=== PATIENT | female | born 1950 | race Caucasian/White ===

== ENCOUNTER 2018-01-24 22:13 | Emergency (ER) | payer MEDICARE ==
[~2018-01-24] VITALS: Ht 157.5 cm; Wt 64.5 kg
[2018-01-24 22:30] VITALS: BP 159/73; PULSE 93; RESP 18; TEMP 98; O2SAT 97
--- NOTE | 2018-01-24 23:16 | RADRPT ---
EXAM DATE/TIME: 01/24/2018 22:53 [facility] COMPARISON: No previous studies available for comparison. INDICATIONS : Trauma. Fall. RADIATION DOSE: 54.93 CTDIvol (mGy) MEDICAL HISTORY : None SURGICAL HISTORY : None. ENCOUNTER: Initial ACUITY: 1 day PAIN SCALE: 5/10 LOCATION: frontal TECHNIQUE: Multiple contiguous axial images were obtained of the head. Using automated exposure control and adj ustment of the mA and/or kV according to patient size, radiation dose was kept as low as reasonably a chievable to obtain optimal diagnostic quality images. DICOM format image data is available electro nically for review and comparison. FINDINGS: CEREBRUM: The ventricles are normal for age. No evidence of midline shift, mass lesion, hemorrhage or acute in farction. No extra-axial fluid collections are seen. POSTERIOR FOSSA: The cerebellum and brainstem are intact. The 4th ventricle is midline. The cerebellopontine angle i s unremarkable. EXTRACRANIAL: The visualized portion of the orbits is intact. SKULL: The calvaria is intact. No evidence of skull fracture. CONCLUSION: 1. No acute intracranial abnormalities. Left periorbital soft tissue swelling. nE Del Rio MD on January 24, 2018 at 23:11 Board Certified Radiologist. This report was verified electronically.
--- NOTE | 2018-01-24 23:19 | RADRPT ---
EXAM DATE/TIME: 01/24/2018 22:53 [facility] COMPARISON: No previous studies available for comparison. INDICATIONS : Trauma RADIATION DOSE: CTDIvol (mGy) MEDICAL HISTORY : None SURGICAL HISTORY : None ENCOUNTER: Initial ACUITY: One day PAIN SCORE: Unknown LOCATION: Left periorbital TECHNIQUE: Volumetric scanning of the facial bones was performed. Using automated exposure control and adjustme nt of the mA and/or kV according to patient size, radiation dose was kept as low as reasonably achiev able to obtain optimal diagnostic quality images. DICOM format image data is available electronicall y for review and comparison. FINDINGS: ORBITS: The orbital and infraorbital osseous structures are intact. The retroconal structures have a normal configuration. No radiopaque foreign bodies are seen. NASAL BONE: The nasal bone and maxillary spine are intact ZYGOMATIC ARCHES: Symmetric without evidence of fracture. SINUSES: The maxillary, ethmoid and frontal sinuses are intact. No air-fluid levels seen. NASAL CAVITY: The nasal septum is intact and midline. The lacrimal ducts are intact. SOFT TISSUES: No radiopaque foreign bodies seen. There is left-sided periorbital and frontal scalp swelling. INTRACRANIAL: No intracranial air seen. CRIBIFORM PLATE: Grossly intact. CONCLUSION: 1. Left-sided periorbital and scalp swelling. No acute fracture identified. En Del Rio MD on January 24, 2018 at 23:15 Board Certified Radiologist. This report was verified electronically.
[2018-01-24] MEDS ORDERED: SODIUM CHLOR 0.9% 1000 ML INJ 1,000 ML IV ONE (23:34)
[2018-01-24] MEDS ORDERED: ATEN25TA PO (23:36)
[2018-01-24] MEDS ORDERED: LIPI10TA PO (23:36)
[2018-01-24] MEDS ORDERED: SODIUM CHLORIDE 0.9% FLUSH 10 ML FLUSH IVF PRN (23:45)
[2018-01-24] MEDS ORDERED: ONDANSETRON HCL 4 MG/2 ML VIAL IVP ONE (23:45)
[2018-01-24] MEDS ORDERED: ACETAMINOPHEN/HYDROcodone 325 MG/5 MG TAB PO ONE (23:45)
[2018-01-25 00:02] LABS: AUTOMATED NEUTROPHIL # 10.4 TH/MM3 (1.8-7.7); BASOPHIL % 0.4 % (0.0-2.0); EOSINOPHIL % 0.4 % (0.0-4.0); HEMATOCRIT 42.7 % (35.0-46.0); HEMOGLOBIN 14.4 GM/DL (11.6-15.3); LYMPH % 10.1 % (9.0-44.0); LYMPHOCYTE # 1.3 TH/MM3 (1.0-4.8); MEAN CELL VOLUME 91.3 FL (80.0-100.0); MEAN CORPUSCULAR HEMOGLOBIN 30.9 PG (27.0-34.0); MEAN CORPUSCULAR HGB CONC 33.8 % (32.0-36.0); MEAN PLATELET VOLUME 8.4 FL (7.0-11.0); MONOCYTE # 0.7 TH/MM3 (0-0.9); NEUT % 83.1 % (16.0-70.0); PLATELET COUNT 190 TH/MM3 (150-450); RED BLOOD COUNT 4.68 MIL/MM3 (4.00-5.30); WHITE BLOOD COUNT 12.4 TH/MM3 (4.0-11.0)
[2018-01-25 00:10] VITALS: RESP 16; O2SAT 99
[2018-01-25 00:13] LABS: CHLORIDE 111 MEQ/L (98-107); SODIUM (NA) 142 MEQ/L (136-145)
[2018-01-25 00:17] LABS: BILIRUBIN, URINE NEG (NEG); BLOOD, URINE MOD (NEG); GLUCOSE,URINE NEG (NEG); KETONE, URINE 15 mg/dL (NEG); NITRITE,URINE POS (NEG); PH, URINE 5.5 (5.0-8.5); URINE COLOR YELLOW (YELLW/STRAW); URINE LEUKOCYTE ESTERASE SMALL (NEG)
[2018-01-25 00:17] LABS: ALBUMIN 3.9 GM/DL (3.4-5.0); BICARBONATE 25.5 MEQ/L (21.0-32.0); BLOOD UREA NITROGEN 18 MG/DL (7-18); GLUCOSE,RANDOM 112 MG/DL (74-106); MAGNESIUM 2.1 MG/DL (1.5-2.5)
[2018-01-25 00:20] LABS: ALT (GPT) 33 U/L (10-53); AST (GOT) 22 U/L (15-37); CREATININE 0.82 MG/DL (0.50-1.00); GLOMERULAR FILTRATION RATE 70 ML/MIN (>89)
[2018-01-25 00:22] LABS: HYALINE CAST, URINE 0-2 /lpf (RARE); MUCUS URINE FEW /lpf (OCC); WHITE BLOOD CELL CLUMPS OCC
[2018-01-25 00:22] LABS: TOTAL BILIRUBIN ADULT 0.2 MG/DL (0.2-1.0); TOTAL PROTEIN 7.5 GM/DL (6.4-8.2)
[2018-01-25 00:23] LABS: ALKALINE PHOSPHATASE 127 U/L (45-117)
[2018-01-25 00:23] LABS: BACTERIA, URINE MANY /hpf; RBC, URINE 0-3 /hpf (0-3); SQUAMOUS EPITHELIAL CELL URINE 0-5 /hpf (0-5)
[2018-01-25] MEDS ORDERED: cefTRIAXone INJ 1,000 MG in SODIUM CHLORIDE 0.9% INJ 100 ML IV ONE (00:30)
[2018-01-25] MEDS ORDERED: CEPH-460 PO (00:35)
[2018-01-25] MEDS ORDERED: PERI0.126 SWISH-SPIT (00:35)
--- NOTE | 2018-01-25 00:40 | PD ---
HPI Chief Complaint: Fall Time Seen by Provider: 22:31 Travel History International Travel<30 days: No Contact w/Intl Traveler<30days: No Traveled to known affect area: No History of Present Illness HPI The patient 67 years old and arrives to the ER by private vehicle. She had gone out to dinner with friends and had a couple drinks of alcohol. She fell in the parking lot outside of the hotel with a loss of consciousness. She remembers riding home in the car and waking up in the parking lot. She complains of headache and left shoulder pain. She also complains of pain about the chin in the lower jaw. She reports smoking tobacco prior to loss of consciousness. She also complains of mild bilateral knee pain. No shortness of breath or palpitations. PFSH Past Medical History Tetanus Vaccination: Unknown Influenza Vaccination: No Social History Alcohol Use: Yes (SOCIALLY ) Tobacco Use: Yes Substance Use: No Allergies-Medications (Allergen,Severity, Reaction): Coded Allergies: No Known Allergies (Unverified , 01/24/18) Reported Meds & Prescriptions Reported Meds & Active Scripts Active Reported Atenolol 25 Mg Tab 25 Mg PO DAILY Lipitor (Atorvastatin Calcium) 10 Mg Tab 10 Mg PO HS Review of Systems Except as stated in HPI: all other systems reviewed are Neg General / Constitutional: No: Fever Physical Exam Narrative GENERAL: 67-year-old female pleasant well-nourished well-developed Vital Signs Date Time Temp Pulse Resp B/P (MAP) Pulse Ox O2 Delivery O2 Flow Rate FiO2 01/25/18 00:10 16 99 Room Air 01/24/18 22:41 18 98 Room Air 01/24/18 22:30 98.0 93 18 159/73 (101) 97 SKIN: Warm and dry. There is a 1 cm laceration overlying the plantar aspect of the chin. HEAD: Atraumatic. Normocephalic. EYES: Pupils equal and round. No scleral icterus. No injection or drainage. ENT: No nasal bleeding or discharge. Mucous membranes pink and moist. Along the lower gingival margin/vestibule there is about a 5 cm laceration with extension towards the region of the left canine.. NECK: Trachea midline. No JVD. CARDIOVASCULAR: Regular rate and rhythm. RESPIRATORY: No accessory muscle use. Clear to auscultation. Breath sounds equal bilaterally. GASTROINTESTINAL: Abdomen soft, non-tender, nondistended. Hepatic and splenic margins not palpable. MUSCULOSKELETAL: Extremities without clubbing, cyanosis, or edema. No obvious deformities. NEUROLOGICAL: Awake and alert. No obvious cranial nerve deficits. Motor grossly within normal limits. Five out of 5 muscle strength in the arms and legs. Normal speech. PSYCHIATRIC: Appropriate mood and affect; insight and judgment normal. Data Data Last Documented VS Vital Signs Date Time Temp Pulse Resp B/P (MAP) Pulse Ox O2 Delivery O2 Flow Rate FiO2 01/25/18 00:10 16 99 Room Air 01/24/18 22:30 98.0 93 159/73 (101) Orders Orders Ct Brain W/O Iv Contrast(Rout) (01/24/18 22:39) Ct Facial Bones W/O Iv Cont (01/24/18 22:39) Electrocardiogram (01/24/18 23:34) Complete Blood Count With Diff (01/24/18 23:34) Comprehensive Metabolic Panel (01/24/18 23:34) Magnesium (Mg) (01/24/18 23:34) Ecg Monitoring (01/24/18 23:34) Iv Access Insert/Monitor (01/24/18 23:34) Oximetry (01/24/18 23:34) Ondansetron Inj (Zofran Inj) (01/24/18 23:45) Sodium Chloride 0.9% Flush (Ns Flush) (01/24/18 23:45) Sodium Chlor 0.9% 1000 Ml Inj (Ns 1000 M (01/24/18 23:34) Urinalysis - C+S If Indicated (01/24/18 23:34) Drug Screen, Random Urine (01/24/18 23:34) Alcohol (Ethanol) (01/24/18 23:34) Acetamin-Hydrocod 325-5 Mg (Davis 5-325 (01/24/18 23:45) Urine Culture (01/25/18 00:02) Ceftriaxone Inj (Rocephin Inj) (01/25/18 00:30) Labs Laboratory Tests Test 01/24/18 23:52 01/25/18 00:02 White Blood Count 12.4 TH/MM3 Red Blood Count 4.68 MIL/MM3 Hemoglobin 14.4 GM/DL Hematocrit 42.7 % Mean Corpuscular Volume 91.3 FL Mean Corpuscular Hemoglobin 30.9 PG Mean Corpuscular Hemoglobin Concent 33.8 % Red Cell Distribution Width 12.0 % Platelet Count 190 TH/MM3 Mean Platelet Volume 8.4 FL Neutrophils (%) (Auto) 83.1 % Lymphocytes (%) (Auto) 10.1 % Monocytes (%) (Auto) 6.0 % Eosinophils (%) (Auto) 0.4 % Basophils (%) (Auto) 0.4 % Neutrophils # (Auto) 10.4 TH/MM3 Lymphocytes # (Auto) 1.3 TH/MM3 Monocytes # (Auto) 0.7 TH/MM3 Eosinophils # (Auto) 0.0 TH/MM3 Basophils # (Auto) 0.0 TH/MM3 CBC Comment DIFF FINAL Differential Comment Blood Urea Nitrogen 18 MG/DL Creatinine 0.82 MG/DL Random Glucose 112 MG/DL Total Protein 7.5 GM/DL Albumin 3.9 GM/DL Calcium Level 9.0 MG/DL Magnesium Level 2.1 MG/DL Alkaline Phosphatase 127 U/L Aspartate Amino Transf (AST/SGOT) 22 U/L Alanine Aminotransferase (ALT/SGPT) 33 U/L Total Bilirubin 0.2 MG/DL Sodium Level 142 MEQ/L Potassium Level 3.9 MEQ/L Chloride Level 111 MEQ/L Carbon Dioxide Level 25.5 MEQ/L Anion Gap 6 MEQ/L Estimat Glomerular Filtration Rate 70 ML/MIN Ethyl Alcohol Level 50 MG/DL Urine Collection Type CLEAN CATCH Urine Color YELLOW Urine Turbidity SL CLOUDY Urine pH 5.5 Urine Specific [place] 1.025 Urine Protein TRACE mg/dL Urine Glucose (UA) NEG mg/dL Urine Ketones 15 mg/dL Urine Occult Blood MOD Urine Nitrite POS Urine Bilirubin NEG Urine Urobilinogen 0.2 MG/DL Urine Leukocyte Esterase SMALL Urine RBC 0-3 /hpf Urine WBC 9-14 /hpf Urine WBC Clumps OCC Urine Squamous Epithelial Cells 0-5 /hpf Urine Bacteria MANY /hpf Urine Hyaline Casts 0-2 /lpf Urine Mucus FEW /lpf Microscopic Urinalysis Comment CULTURE INDICATED Urine Opiates Screen NEG Urine Barbiturates Screen NEG Urine Amphetamines Screen NEG Urine Benzodiazepines Screen NEG Urine Cocaine Screen NEG Urine Cannabinoids Screen NEG MDM Medical Decision Making Medical Screen Exam Complete: Yes Emergency Medical Condition: Yes Differential Diagnosis Arrhythmia, dehydration, metabolic abnormality, anemia, alcohol intoxication, intracranial hemorrhage, mandible fracture, laceration Narrative Course CBC & BMP Diagram 01/24/18 23:52 Total Protein 7.5, Albumin 3.9, Calcium Level 9.0, Magnesium Level 2.1, Alkaline Phosphatase 127 H, Aspartate Amino Transf (AST/SGOT) 22, Alanine Aminotransferase (ALT/SGPT) 33, Total Bilirubin 0.[address] shows no acute injury Facial bone CT shows no acute injury EKG shows a sinus rhythm with a rate of [address] changes noted Urinalysis shows a UTI The patient received a gram of Rocephin here. Laceration repaired by me at the bedside. Tetanus given. Return precautions discussed As well as oral hygiene care in the setting of a gingival laceration. Procedures Procedure Narrative LACERATION LOCATION: Chin LENGTH: 1 cm NUMBER OF STITCHES/LEWIS: Dermabond REPAIR: The area of the laceration was prepped with Betadine and sterilely draped. The wound was copiously irrigated and explored without evidence of foreign body, tendon injury or neurovascular injury. The wound was closed using Dermabond. This was a single layer repair. A sterile dressing was applied. The patient was advised to keep the dressing clean and dry. Patient tolerated the procedure well. Diagnosis Primary Impression: Syncope and collapse Additional Impressions: Chin laceration Qualified Codes: S01.81XA - Laceration without foreign body of other part of head, initial encounter Laceration of gingiva Elevated ETOH level Qualified Codes: Y90.2 - Blood alcohol level of 40-59 mg/100 ml UTI (urinary tract infection) Qualified Codes: N30.01 - Acute cystitis with hematuria Med/Other Pt SpecificInfo: Prescription(s) given Scripts Cephalexin (Keflex) 500 Mg Cap 500 MG PO Q8H for Infection for 5 Days, #15 CAP 0 Refills Prov: Edmar Tai MD 01/25/18 Chlorhexidine Gluconate (Mouth) Liq (Peridex Liq) 0.12% Soln 15 ML SWISH-SPIT BID for 14 Days, #420 ML 0 Refills Prov: Edmar aTi MD 01/25/18 Disposition: 01 DISCHARGE HOME Condition: Stable Edmar Tai MD Jan 25, 2018 00:40
[2018-01-25] MEDS ORDERED: TETANUS/DIPHTHERIA TOXOID ADULT 0.5 ML VIAL IM ONE (00:45)
[2018-01-25] MEDS ORDERED: HYDR-3580 PO (00:49)
--- NOTE | 2018-01-25 08:53 | EKG ---
Date Performed: 01/25/2018 Time Performed: 00:04:47 PTAGE: 67 years EKG: Sinus rhythm POSSIBLE LEFT ATRIAL ENLARGEMENT LOW QRS VOLTAGE IN PRECORDIAL LEADS SEPTAL MYOCARDIAL INFARCTION AB NORMAL ECG NO PREVIOUS TRACING DOCTOR: Toño Gunter Interpretating Date/Time 01/25/2018 08:52:25
== END 2018-01-25 02:00 | disposition home or self-care (01) ==
LOC: PHED 22:13
DX: R55 Syncope and collapse (principal); S01.81XA Laceration without foreign body of other part of head, initial encounter; N30.01 Acute cystitis with hematuria; M25.512 Pain in left shoulder; F17.210 Nicotine dependence, cigarettes, uncomplicated; R78.0 Finding of alcohol in blood; R94.31 Abnormal electrocardiogram [ECG] [EKG]; W19.XXXA Unspecified fall, initial encounter; Y92.481 Parking lot as the place of occurrence of the external cause; Y90.2 Blood alcohol level of 40-59 mg/100 ml; Z23 Encounter for immunization; Z79.899 Other long term (current) drug therapy
CPT/HCPCS: 12011; 70450; 70486; 80053; 80307; 81001; 83735; 85025; 87077; 87086; 87186; 90471; 90714; 93005; 96361; 96374; 99285; J0696; J2405; J7030